=== PATIENT | male | born 1960 | race Caucasian/White ===

== ENCOUNTER 2020-10-12 18:13 | Emergency (ER) | payer SELFPAY ==
[~2020-10-12 18:13] MED LIST: LEVAQUIN750 MG PO; LEVOTHYROXINE75 MC1 PO; LIPITOR 10MG TA10 MG PO; METFORMIN HCL500 M4 PO; NABUMETONE750 MG PO; NOVOLOG VI100 UNIT/1 SC; PERCOCET 5-3251 EACH PO; PREDNISONE5 MG PO; PRILOSEC20 MG PO; RYBELSUS7 MG PO; TAMSULOSIN HCL0.4 MG PO; VALACYCLOVIR1000 MG PO; VOLTAREN **OUT75 MG PO
== END 2020-10-12 18:30 | disposition home or self-care (01) ==
LOC: FER 18:13
DX: T14.8XXA Other injury of unspecified body region, initial encounter (principal); R06.7 Sneezing; W57.XXXA Bitten or stung by nonvenomous insect and other nonvenomous arthropods, initial encounter; Z53.8 Procedure and treatment not carried out for other reasons

== ENCOUNTER 2020-12-04 11:26 | Emergency (ER) | payer OTHER ==
[2020-12-04 12:04] LABS: BASOPHIL 0.8 % (0-2); EOSINOPHIL 1.5 % (0-5); HGB 13.3 g/dl (13.2-18.0); LYMPHOCYTE 25.3 % (15-48); MCH 30.4 pg (25.0-31.0); MCHC 33.3 g/dL (32.0-36.0); MCV 91.3 fL (78.0-100.0); MONOCYTE 6.3 % (0-12); MPV 10.4 fL (6.0-9.5); NEUTROPHIL 65.8 % (41-80); NRBC 0; PLT 211 K/uL (150-400); RBC 4.38 M/uL (4.70-6.00); RDW 11.9 % (11.5-14.0); WBC 5.9 K/uL (4.0-10.5)
[2020-12-04 12:15] LABS: INR 1.02 (0.9-1.2); PROTHROMBIN TIME 12.8 SECONDS (11.8-13.4); PTT 29.8 SECONDS (24.4-34.7)
[2020-12-04 12:25] LABS: ALBUMIN 3.7 g/dL (3.4-5.0); BILIRUBIN - TOTAL 0.5 mg/dL (0.2-1.0); CREATININE 0.75 mg/dL (0.67-1.17); GLOBULIN (CALCULATION) 3.6 g/dL; TOTAL PROTEIN 7.3 g/dL (6.4-8.2)
[2020-12-04] MEDS ORDERED: CYCLOBENZAPRINE10 MG PO (13:10)
[2020-12-04] MEDS ORDERED: PRINIVIL10 MG PO (13:15)
== END 2020-12-04 13:40 | disposition home or self-care (01) ==
LOC: FER 11:26
PROVIDERS: Internal Medicine
DX: R07.89 Other chest pain (principal); E11.9 Type 2 diabetes mellitus without complications; I10 Essential (primary) hypertension; Z79.4 Long term (current) use of insulin
CPT/HCPCS: 36415; 71045; 80053; 84484; 85025; 85610; 85730; 93005